=== PATIENT | female | born 1940 | race Caucasian/White ===

== ENCOUNTER 2016-12-22 12:20 | Emergency (ER) | payer MEDICARE ==
[~2016-12-22] VITALS: Ht 167.6 cm; Wt 108.9 kg
[~2016-12-22 12:20] MED LIST: ACET325T21 PO; ASPI-630 PO; CETI10TA30 PO; FLUT16SP NS; HYDR200T5 PO; LEVO50TA PO; METO-269 PO; MULT1CAP PO
--- NOTE | 2016-12-22 13:06 | PHYS DOC ---
Past Medical History Past Medical History: Arthritis, Asthma, Fibromyalgia, Hypertension, Other Additional Past Medical Histor: left BBB, PAC Past Surgical History: Cholecystectomy, Hysterectomy, Tonsillectomy Additional Past Surgical Histo: LUMPECTOMY X2 L BREAST, BENIGN GROWTH ON R LEG Alcohol Use: None Drug Use: None Adult General Chief Complaint Chief Complaint: FLANK PAIN HPI HPI Patient is a 76 year old female who presents with left upper quadrant pain. She states it started 6 days ago is a component that is constant dull achy and then another one that is sharp stabbing. She states the sharp stabbing comes on without any prompting. She states that sharp pain lasts 1-2 minutes and resolves on its own. She denies any nausea vomiting. She denies any change in her bowel movements. She states she has a history of fibromyalgia and this is different pain that she's ever had before. She states she usually takes tramadol and this hasn't helped the pain or discomfort at all. Review of Systems Review of Systems Constitutional: Denies fever or chills [] Eyes: Denies change in visual acuity, redness, or eye pain [] HENT: Denies nasal congestion or sore throat [] Respiratory: Denies cough or shortness of breath [] Cardiovascular: No additional information not addressed in HPI [] GI: Positive for abdominal pain,Denies nausea, vomiting, bloody stools or diarrhea [] : Denies dysuria or hematuria [] Musculoskeletal: Denies back pain or joint pain [] Integument: Denies rash or skin lesions [] Neurologic: Denies headache, focal weakness or sensory changes [] Endocrine: Denies polyuria or polydipsia [] Current Medications Current Medications Current Medications Medications (Trade) Dose Ordered Sig/[facility] Start Time Stop Time Status Last Admin Dose Admin Fentanyl Citrate (Fentanyl 2ml Vial) 25 mcg PRN Q15MIN PRN 12/22/16 13:15 12/23/16 13:14 12/22/16 13:27 25 MCG Info (Do NOT chart on this entry -- for MONITORING) 1 each PRN DAILY PRN 12/22/16 14:30 12/24/16 14:29 Iohexol (Omnipaque 300 Mg/ml) 75 ml 1X ONCE 12/22/16 14:15 12/22/16 14:16 DC 12/22/16 14:22 75 ML Ondansetron HCl (Zofran) 4 mg 1X ONCE 12/22/16 13:15 12/22/16 13:16 DC 12/22/16 13:27 4 MG Sodium Chloride 500 ml @ 500 mls/hr 1X ONCE 12/22/16 13:30 12/22/16 14:29 DC 12/22/16 13:31 500 MLS/HR Allergies Allergies Allergies Coded Allergies Type Severity Reaction Last Updated Verified Penicillins Allergy Intermediate 12/25/13 No Jcmnclp-Gbe-Sgg Reductase Inhibitor Allergy Intermediate 08/30/13 Yes amlodipine Allergy Intermediate 12/25/13 No egg Allergy Intermediate 12/25/13 No lisinopril Allergy Intermediate 12/25/13 No tetanus immune globulin Allergy Intermediate 12/25/13 No Physical Exam Physical Exam Constitutional: Well developed, well nourished, no acute distress, non-toxic appearance. [] HENT: Normocephalic, atraumatic, bilateral external ears normal, oropharynx moist, no oral exudates, nose normal. [] Eyes: PERRLA, EOMI, conjunctiva normal, no discharge. [] Neck: Normal range of motion, no tenderness, supple, no stridor. [] Cardiovascular:Heart rate regular rhythm, no murmur [] Lungs & Thorax: Bilateral breath sounds clear to auscultation [] Abdomen: Bowel sounds hypoactive soft, tender palpation in the left upper quadrant without any rebound or guarding, no masses, no pulsatile masses. [] Skin: Warm, dry, no erythema, no rash. [] Back: No tenderness, no CVA tenderness. [] Extremities: No tenderness, no cyanosis, no clubbing, ROM intact, no edema. [] Neurologic: Alert and oriented X 3, normal motor function, normal sensory function, no focal deficits noted. [] Psychologic: Affect normal, judgement normal, mood normal. [] Current Patient Data Vital Signs Vital Signs Date Time Temp Pulse Resp B/P (MAP) Pulse Ox O2 Delivery O2 Flow Rate FiO2 12/22/16 13:44 76 15 161/76 (104) 98 12/22/16 13:38 Room Air 12/22/16 12:46 98.1 98.1 Lab Values Laboratory Tests Test 12/22/16 13:12 12/22/16 15:02 White Blood Count 5.9 x10^3/uL (4.0-11.0) Red Blood Count 4.18 x10^6/uL (3.50-5.40) Hemoglobin 12.2 g/dL (12.0-15.5) Hematocrit 37.1 % (36.0-47.0) Mean Corpuscular Volume 89 fL (79-100) Mean Corpuscular Hemoglobin 29 pg (25-35) Mean Corpuscular Hemoglobin Concent 33 g/dL (31-37) Red Cell Distribution Width 12.6 % (11.5-14.5) Platelet Count 281 x10^3/uL (140-400) Neutrophils (%) (Auto) 70 % (31-73) Lymphocytes (%) (Auto) 15 % (24-48) L Monocytes (%) (Auto) 8 % (0-9) Eosinophils (%) (Auto) 5 % (0-3) H Basophils (%) (Auto) 2 % (0-3) Neutrophils # (Auto) 4.2 x10^3uL (1.8-7.7) Lymphocytes # (Auto) 0.9 x10^3/uL (1.0-4.8) L Monocytes # (Auto) 0.5 x10^3/uL (0.0-1.1) Eosinophils # (Auto) 0.3 x10^3/uL (0.0-0.7) Basophils # (Auto) 0.1 x10^3/uL (0.0-0.2) Prothrombin Time 13.2 SEC (11.7-14.0) Prothrombin Time INR 1.1 (0.8-1.1) PTT 30 SEC (24-38) Sodium Level 134 mmol/L (136-145) L Potassium Level 3.6 mmol/L (3.5-5.1) Chloride Level 97 mmol/L (98-107) L Carbon Dioxide Level 26 mmol/L (21-32) Anion Gap 11 (6-14) Blood Urea Nitrogen 14 mg/dL (7-20) Creatinine 1.1 mg/dL (0.6-1.0) H Estimated GFR (Cockcroft-Gault) 48.2 Glucose Level 117 mg/dL (70-99) H Calcium Level 9.8 mg/dL (8.5-10.1) Phosphorus Level 3.3 mg/dL (2.6-4.7) Magnesium Level 1.6 mg/dL (1.8-2.4) L Total Bilirubin 0.4 mg/dL (0.2-1.0) Direct Bilirubin 0.1 mg/dL (0.0-0.2) Aspartate Amino Transferase (AST) 23 U/L (15-37) Alanine Aminotransferase (ALT) 28 U/L (14-59) Alkaline Phosphatase 96 U/L (46-116) Creatine Kinase 65 U/L (26-192) Creatine Kinase MB (Mass) 0.8 ng/mL (0.0-3.6) Creatine Kinase MB Relative Index % (0-4) Troponin I Quantitative < 0.017 ng/mL (0.000-0.055) Total Protein 7.3 g/dL (6.4-8.2) Albumin 3.5 g/dL (3.4-5.0) Lipase 147 U/L (73-393) Urine Collection Type Unknown Urine Color Yellow Urine Clarity Clear Urine pH 6.5 Urine Specific [place] 1.010 Urine Protein Negative mg/dL (NEG-TRACE) Urine Glucose (UA) Negative mg/dL (NEG) Urine Ketones (Stick) Negative mg/dL (NEG) Urine Blood Negative (NEG) Urine Nitrite Negative (NEG) Urine Bilirubin Negative (NEG) Urine Urobilinogen Dipstick 0.2 mg/dL (0.2 mg/dL) Urine Leukocyte Esterase Trace (NEG) Urine RBC 0 /HPF (0-2) Urine WBC 1-4 /HPF (0-4) Urine Squamous Epithelial Cells Few /LPF Urine Bacteria 0 /HPF (0-FEW) Laboratory Tests 12/22/16 13:12 Laboratory Tests 12/22/16 13:12 EKG EKG EKG shows sinus with a rate of 82 bpm with numerous PVCs noted, no ST elevations or T-wave inversions appreciated, QTC 496, as interpreted by me. Radiology/Procedures Radiology/Procedures [facility] [address] [place] [address] IMAGING REPORT Signed PATIENT: LINA ALMEIDA ACCOUNT: [id number] : 1940 LOCATION: ER AGE: 76 SEX: F EXAM STATUS: REG ER ORD. PHYSICIAN: TALITA MICHEL MD REASON: abd pain PROCEDURE: CT ABD PELV W/ IV CONTRST ONLY Examination: CT of the abdomen pelvis with IV contrast History: History of abdominal pain for one week. Comparison: None available Technique: Axial CT images of the abdomen and pelvis were performed with IV contrast. Coronal and sagittal reformats are performed. PQRS Compliance Statement: One or more of the following individualized dose reduction techniques were utilized for this examination: 1. Automated exposure control 2. Adjustment of the mA and/or kV according to patient size 3. Use of iterative reconstruction technique . Findings: The visualized bibasal lungs demonstrate minimal atelectasis. No evidence of free air identified in the abdomen. Small subcentimeter cystic structure identified in the right lobe of the liver is too small to characterize. Cholecystectomy clips are identified. The visualized spleen, adrenals grossly appears unremarkable. The stomach is mildly distended. The visualized pancreas grossly appears unremarkable. The small bowel is nondilated. Feces and gas noted in the colon. The appendix is normal. The urinary bladder is mildly distended. The bilateral kidneys enhance symmetrically. Tiny subcentimeter hypodensity identified in the midpole and inferior pole of the right kidney. Moderate aortic atherosclerosis. Moderate degenerative disease identified in the lumbar spine. Impression: 1. No acute intra-abdominal findings. 2. Tiny subcentimeter cystic structures identified in the midpole of the right kidney is too small to get this could be a cyst or cystic lesion. Follow-up nonemergent ultrasound is recommended, DICTATED and SIGNED BY: DONG PAN MD DATE: 12/22/16 6009 CC: TALITA MICHEL MD; MARY SANCHEZ MD ~ Impressions: Left upper quadrant abdominal pain Numerous PVCs Fibromyalgia Course & Med Decision Making Course & Med Decision Making Pertinent Labs and Imaging studies reviewed. (See chart for details) CT scan doesn't show any acute abnormalities other than a possible cyst and a right kidney that needs to be followed up as an outpatient. Patient does not want to be admitted and prefers to be discharged home. I've offered her narcotic pain medicine for discomfort and we've decided on trying Lidoderm patches see this will help her discomfort. She has a follow-up appointment with her primary care physician on December 29 of asked her to move this date up. Return precautions given. She is agreeable plan of being discharged in stable condition at this time with her family. She does have numerous PVCs on the monitor and she is on an antiarrhythmic that she's been sick every 8 hours and she missed her dose at noon since she was here in the ER. Dragon Disclaimer Dragon Disclaimer This electronic medical record was generated, in whole or in part, using a voice recognition dictation system. Departure Departure Impression: Primary Impression: Abdominal pain Disposition: HOME, SELF-CARE Condition: STABLE Referrals: MARY SANCHEZ MD (PCP) Patient Instructions: Abdominal Pain Additional Instructions: You were seen today for evaluation of your left sided abdominal pain. The CT scan doesn't show any acute abnormalities. It does show a small cyst in your right kidney that needs to be followed up with as an outpatient. Your being discharged home with Lidoderm patches. Please follow the instructions on the packaging. Please call Dr. Sanchez's office and try to move up your appointment. Return the ER for severe pain, or other concerns. Scripts Lidocaine (Lidocaine) 1 Each Adh..patch 1 EACH TP as directed Y for PAIN, #3 PATCH Prov: TALITA MICHEL MD 12/22/16 Problem Qualifiers Primary Impression: Abdominal pain Abdominal location: left upper quadrant Qualified Codes: R10.12 - Left upper quadrant pain TALITA MICHEL MD Dec 22, 2016 13:06
[2016-12-22] MEDS ORDERED: fentaNYL PF VIAL 100 MCG/2 ML VIAL IV PRN (13:15)
[2016-12-22] MEDS ORDERED: ONDANSETRON PF 4 MG/2 ML VIAL. IV ONE (13:15)
[2016-12-22 13:29] LABS: BASO # 0.1 x10^3/uL (0.0-0.2); BASO % 2 % (0-3); EOS % 5 % (0-3); HEMATOCRIT 37.1 % (36.0-47.0); HEMOGLOBIN 12.2 g/dL (12.0-15.5); LYMPH # 0.9 x10^3/uL (1.0-4.8); LYMPH % 15 % (24-48); MEAN CORPUSCULAR HEMOGLOBIN 29 pg (25-35); MEAN CORPUSCULAR HGB CONC 33 g/dL (31-37); MEAN CORPUSCULAR VOLUME 89 fL (79-100); MONO % 8 % (0-9); NEUT % 70 % (31-73); PLATELET COUNT 281 x10^3/uL (140-400); RED BLOOD COUNT 4.18 x10^6/uL (3.50-5.40); RED CELL DISTRIBUTION WIDTH 12.6 % (11.5-14.5); WHITE BLOOD COUNT 5.9 x10^3/uL (4.0-11.0)
[2016-12-22] MEDS ORDERED: IV NORMAL SALINE 1000ML BAG 500 ML IV ONE (13:30)
[2016-12-22 13:37] LABS: CALCIUM 9.8 mg/dL (8.5-10.1); CREATININE 1.1 mg/dL (0.6-1.0); GFR 48.2; POTASSIUM 3.6 mmol/L (3.5-5.1)
[2016-12-22 13:39] LABS: INR 1.1 (0.8-1.1); PROTHROMBIN TIME PATIENT 13.2 SEC (11.7-14.0)
[2016-12-22 13:43] LABS: ALBUMIN 3.5 g/dL (3.4-5.0); DIRECT BILIRUBIN 0.1 mg/dL (0.0-0.2); TOTAL BILIRUBIN 0.4 mg/dL (0.2-1.0); TOTAL PROTEIN 7.3 g/dL (6.4-8.2)
[2016-12-22 13:50] LABS: CKMB MASS 0.8 ng/mL (0.0-3.6); CREATINE KINASE 65 U/L (26-192)
[2016-12-22] MEDS ORDERED: IOHEXOL 300 MG/ML 75 ML VIAL IV ONE (14:15)
[2016-12-22] MEDS ORDERED: CONTRAST GIVEN MC PRN (14:30)
[2016-12-22 14:52] LABS: MAGNESIUM 1.6 mg/dL (1.8-2.4); PHOSPHORUS 3.3 mg/dL (2.6-4.7)
--- NOTE | 2016-12-22 14:58 | RAD ---
Examination: CT of the abdomen pelvis with IV contrast History: History of abdominal pain for one week. Comparison: None available Technique: Axial CT images of the abdomen and pelvis were performed with IV contrast. Coronal and sagittal reformats are performed. PQRS Compliance Statement: One or more of the following individualized dose reduction techniques were utilized for this examination: 1. Automated exposure control 2. Adjustment of the mA and/or kV according to patient size 3. Use of iterative reconstruction technique . Findings: The visualized bibasal lungs demonstrate minimal atelectasis. No evidence of free air identified in the abdomen. Small subcentimeter cystic structure identified in the right lobe of the liver is too small to characterize. Cholecystectomy clips are identified. The visualized spleen, adrenals grossly appears unremarkable. The stomach is mildly distended. The visualized pancreas grossly appears unremarkable. The small bowel is nondilated. Feces and gas noted in the colon. The appendix is normal. The urinary bladder is mildly distended. The bilateral kidneys enhance symmetrically. Tiny subcentimeter hypodensity identified in the midpole and inferior pole of the right kidney. Moderate aortic atherosclerosis. Moderate degenerative disease identified in the lumbar spine. Impression: 1. No acute intra-abdominal findings. 2. Tiny subcentimeter cystic structures identified in the midpole of the right kidney is too small to get this could be a cyst or cystic lesion. Follow-up nonemergent ultrasound is recommended,
[2016-12-22 15:11] LABS: BILIRUBIN,URINE NEGATIVE (NEG); GLUCOSE,URINE NEGATIVE (NEG); NITRITE,URINE NEGATIVE (NEG); PH,URINE 6.5; PROTEIN,URINE NEGATIVE (NEG-TRACE); UROBILINOGEN,URINE 0.2 mg/dL (0.2 mg/dL)
[2016-12-22 15:33] LABS: BACTERIA,URINE 0 /HPF (0-FEW); RBC,URINE 0 /HPF (0-2); SQUAMOUS EPITHELIAL CELL,UR FEW /LPF
--- NOTE | 2016-12-22 15:38 | EKG ---
[facility] [address] [place] [address] Test Date: 2016-12-22 Test Time: 13:19:37 Pat Name: LINA ALMEIDA Department: Room: Gender: F [employer]: : 1940 Requested By: TALITA MICHEL Order Number: [id number] Reading MD: Measurements Intervals [place] Rate: 82 P: -53 DE: 182 QRS: 3 QRSD: 154 T: 114 QT: 422 QTc: 496 Interpretive Statements SUPRAVENTRICULAR RHYTHM COMPLEX(ES) WITH ABERRANT INTRAVENTRICULAR CONDUCTION VENTRICULAR PREMATURE COMPLEX(ES) NON SPECIFIC INTRAVENTRICULAR BLOCK QRS(T) CONTOUR ABNORMALITY CONSIDER ANTEROSEPTAL MYOCARDIAL DAMAGE RI6.01 Unconfirmed report No previous ECG available for comparison
[2016-12-22 15:46] VITALS: BP 151/100
[2016-12-22] MEDS ORDERED: LIDO700A39 TP (15:53)
== END 2016-12-22 16:09 | disposition home or self-care (01) ==
LOC: ER 12:20
DX: R10.12 Left upper quadrant pain (principal); M79.7 Fibromyalgia; J45.909 Unspecified asthma, uncomplicated; I10 Essential (primary) hypertension; M19.90 Unspecified osteoarthritis, unspecified site; Z90.49 Acquired absence of other specified parts of digestive tract; Z90.710 Acquired absence of both cervix and uterus; Z88.0 Allergy status to penicillin; Z91.041 Radiographic dye allergy status; Z91.012 Allergy to eggs; Z88.8 Allergy status to other drugs, medicaments and biological substances
CPT/HCPCS: 36415; 74177; 80048; 80076; 81001; 82553; 83690; 83735; 84100; 84484; 85025; 85610; 85730; 87086; 93005; 96361; 96374; 96375; 99285; J2405; J3010; J7030; Q9967

== ENCOUNTER → 2017-01-04 | Outpatient (CLI) | payer MEDICARE ==
[2016-12-22 15:46] VITALS: BP 151/100
[~2017-01-04] MED LIST changes: +LIDO700A39 TP
--- NOTE | 2017-01-04 15:14 | KCIC ---
CHEST PA LATERAL, RIBS LEFT dated 01/04/2017 12:00 AM. Comparison: 12/25/2013 Clinical Indication: Left-sided pain for 2 1/2 weeks. NO KNOWN INJURY Findings: PA and lateral views obtained. Heart and mediastinal contours are stable. Lungs are clear without focal consolidation. Vascular interstitium within normal limits. No pleural effusion or pneumothorax. Dedicated views of left-sided ribs show no evidence of displaced left rib fracture. No acute osseous abnormality. Impression: No acute radiographic abnormality. No evidence of displaced left rib fracture. Electronically signed by: Lance Villanueva MD (01/04/2017 3:10 PM) [facility]
== END | disposition home or self-care (01) ==
LOC: KCIC 13:58
PROVIDERS: ATTEND Internal Medicine
DX: R07.81 Pleurodynia (principal)
CPT/HCPCS: 71020; 71100

== ENCOUNTER → 2018-02-10 | Outpatient (CLI) | payer MEDICARE ==
--- NOTE | 2018-02-10 17:11 | KCIC ---
PA and lateral chest radiograph. History: Dry cough for one year. Comparison: January 04, 2017. Findings: Cardiomediastinal silhouette is within normal limits for size. Bilateral lung paula appear clear without evidence of infiltrate, effusion, or pneumothorax. Impression: 1. No acute cardiopulmonary process. Electronically signed by: Lance Whitaker MD (02/10/2018 5:08 PM) [facility]
== END | disposition home or self-care (01) ==
LOC: KCIC 15:16
PROVIDERS: ATTEND Internal Medicine
DX: R05 Cough (principal)
CPT/HCPCS: 71046